=== PATIENT | female | born 1950 | race Caucasian/White ===

== ENCOUNTER 2022-07-12 09:17 | Day surgery (SDC) | payer OTHER, SELFPAY ==
--- NOTE | 2022-07-11 | GASB_PTH ---
PATIENT: CALLIE ROSE LOC: EN U#:[id number] AGE/SX: 72/F ROOM: RE07/12/[address]: Dr. Fran Munoz DO : 1950 BED: DIS: 07/12/2022 SPEC #: [id number] RECD: 07/12/22 13:02 STATUS: JJ AUBREY #: [id number] MEHUL: 07/11/22 00:[address]: Fran Munoz DEPT: SURGICAL PATHOLOGY RECD BY: Bishop Young ENTERED: 07/12/22 13:02 SP TYPE: Gastric Bx OTHR DR: Dr. Shamar Love MD Tissues: A - Gastric mucous membrane B - Gastric mucous membrane C - Esophageal mucous membrane Procedures: Special Stain Group II Surgery Specimen Level IV Alcian Blue/PAS (control) HEADER OPERATION: EGD ([facility] [place]), biopsy PRE-OP DIAGNOSIS: Dysphagia, esophageal reflux TISSUE SUBMITTED: A ? Antrum biopsy for histo and H. pylori, B ? Gastric body biopsy, C ? Distal esophagus biopsy MICROSCOPIC DIAGNOSIS A. Antrum, biopsy: Mild gastritis. See microscopic description and comment. B. Gastric body, biopsy: Mild gastritis. See microscopic description. C. Distal esophagus, biopsy: Fragments of gastroesophageal mucosa with chronic inflammation. Intestinal metaplasia (goblet cell metaplasia) not identified. See comment. SJ:rg 07/13/2022 COMMENT A. The results of immunohistochemistry for Helicobacter pylori will be reported separately ([id number]). C. Alcian blue/PAS stain with matched control is used in the evaluation of the specimen. MICROSCOPIC DESCRIPTION Slides are reviewed. A & B. The specimen shows fragments of gastric mucosa with chronic inflammatory cell infiltrates in the lamina propria consisting of lymphocytes and plasma cells, consistent with mild chronic gastritis. GROSS DESCRIPTION A - Received in fixative is one container labeled with the patient's name and designated antrum biopsy. The specimen consists of two irregular fragments of light pompa soft tissue that in aggregate measure 0.8 x 0.4 x 0.1 cm. The specimen is totally submitted in one cassette. B - Received in fixative is one container labeled with the patient's name and designated gastric body biopsy. The specimen consists of two irregular fragments of light pompa soft tissue that in aggregate measure 0.8 x 0.5 x 0.1 cm. The specimen is totally submitted in one cassette. C - Received in fixative is one container labeled with the patient's name and designated distal esophagus biopsy. The specimen consists of multiple irregular fragments of light pompa soft tissue that in aggregate measure 0.8 x 0.4 x 0.1 cm. The specimen is totally submitted in one cassette. / SJ:rg 07/12/2022 TC:3 CPT: 10931 x3, 25928
[2022-07-12] VITALS (7 sets, daily range): BP systolic 91–138; BP diastolic 48–77; PULSE 55–73; RESP 14–18; TEMP 36.2–36.5; O2SAT 96–100; BMI 27.8
[2022-07-12] MEDS: Lactated Ringers 1,000 ML 15 ML IV (09:49)
--- NOTE | 2022-07-12 10:30 | IMM_PTH ---
PATIENT: CALLIE ROSE LOC: EN U#:[id number] AGE/SX: 72/F ROOM: RE07/12/[address]: Dr. Fran Munoz DO : 1950 BED: DIS: 07/12/2022 SPEC #: [id number] RECD: 07/12/22 13:06 STATUS: JJ AUBREY #: [id number] MEHUL: 07/12/22 10:[address]: Fran Munoz DEPT: IMMUNOHISTOCHEMISTRY RECD BY: Melissa Moody ENTERED: 07/12/22 13:07 SP TYPE: IMMUNO OTHR DR: Dr. Shamar Love MD Tissues: A - Stomach, NOS Procedures: H Pylori (initial) PHYSICIAN & INSTITUTION [place] [id number] SPECIMEN INFORMATION: Tissue Source: A ? Antrum biopsy Clinical Info: Dysphagia, esophageal reflux Specimen Number: [id number] CPT code: 99145 METHODOLOGY: Deparaffinized sections of prefer/formalin-fixed tissue or PAP/DQ stained slides are incubated with monoclonal/polyclonal antibodies/oligonucleotide probes. Localization is made via biotin free immunoperoxidase method. Appropriate controls are performed and reacted as expected. Results on target cell population are indicated in the following table: RESULTS: ANTIBODY / CLONE RESULT Block A H Pylori (polyclonal) negative These tests were developed and their performance characteristics determined by [facility]. They may not have been cleared or approved by the U.S. Food and Drug Administration. The FDA has determined that such clearance or approval is not necessary. The above immunohistochemical/dualISH markers are ordered and reviewed by the Pathologist. INTERPRETATION: A. Antrum, biopsy: Negative for Helicobacter pylori organisms. SJ:anayeli 07/13/2022
--- NOTE | 2022-07-12 11:34 | OP.EGD_ITS ---
Patient Name: Danita Reddy Procedure Date: 07/12/2022 11:03 AM Date of : 1950 Age: 72 Procedure: Upper GI endoscopy Indications: Dysphagia Providers: Fran Munoz DO Medicines: Monitored Anesthesia Care Patient Profile: This is a 72 year old female. Refer to note in patient chart for documentation of history and physical. Patient has symptoms of chronic dysphagia and dysphagia with solids. The symptoms first began within the past few months. Complications: No immediate complications. Procedure: Pre-Anesthesia Assessment: - Prior to the procedure, a History and Physical was performed, and patient medications and allergies were reviewed. The patient is competent. The risks and benefits of the procedure and the sedation options and risks were discussed with the patient. All questions were answered and informed consent was obtained. Patient identification and proposed procedure were verified by the physician in the pre-procedure area. Mental Status Examination: alert and oriented. Airway Examination: normal oropharyngeal airway and neck mobility. Respiratory Examination: clear to auscultation. CV Examination: normal. Prophylactic Antibiotics: The patient does not require prophylactic antibiotics. Prior Anticoagulants: The patient has taken no previous anticoagulant or antiplatelet agents. ASA Grade Assessment: II - A patient with mild systemic disease. After reviewing the risks and benefits, the patient was deemed in satisfactory condition to undergo the procedure. The anesthesia plan was to use monitored anesthesia care (MAC). Immediately prior to administration of medications, the patient was re-assessed for adequacy to receive sedatives. The heart rate, respiratory rate, oxygen saturations, blood pressure, adequacy of pulmonary ventilation, and response to care were monitored throughout the procedure. The physical status of the patient was re-assessed after the procedure. After obtaining informed consent, the endoscope was passed under direct vision. Throughout the procedure, the patient's blood pressure, pulse, and oxygen saturations were monitored continuously. The gastroscope was introduced through the mouth, and advanced to the second part of duodenum. The upper GI endoscopy was accomplished without difficulty. The patient tolerated the procedure well. Scope In: 11:14:23 AM Scope Out: 11:25:22 AM Total Procedure Duration Time 0 hours 10 minutes 59 seconds Findings: One benign-appearing, intrinsic stenosis was found 21 to 23 cm from the incisors. This stenosis was moderately severe (circumferential scarring or stenosis; an endoscope may pass) and. The stenosis was traversed. A guidewire was placed and the scope was withdrawn. Dilation was performed with a Savary dilator with no resistance at 54 Fr. The dilation site was examined following endoscope reinsertion and showed complete resolution of luminal narrowing. Estimated blood loss was minimal. LA Grade A (one or more mucosal breaks less than 5 mm, not extending between tops of 2 mucosal folds) esophagitis with no bleeding was found 36 to 37 cm from the incisors. Biopsies were taken with a cold forceps for histology. Verification of patient identification for the specimen was done. Estimated blood loss was minimal. A small hiatal hernia was present. Patchy mildly erythematous mucosa without bleeding was found in the gastric body and in the gastric antrum. Biopsies were taken with a cold forceps for histology. The second portion of the duodenum was normal. Impression: - Benign-appearing esophageal stenosis. Dilated. - LA Grade A reflux esophagitis. Biopsied. - Small hiatal hernia. - Erythematous mucosa in the gastric body and antrum. Biopsied. - Normal second portion of the duodenum. Recommendation: - Await pathology results. - No aspirin, ibuprofen, naproxen, or other non-steroidal anti-inflammatory drugs for 3 days after biopsy. - Await pathology results. Procedure Code(s): --- Professional --- 46530, Esophagogastroduodenoscopy, flexible, transoral; with insertion of guide wire followed by passage of dilator(s) through esophagus over guide wire 39617, 59,51, Esophagogastroduodenoscopy, flexible, transoral; with biopsy, single or multiple CPT copyright 2017 [employer]. All rights reserved. The codes documented in this report are preliminary and upon welder experimental review may be revised to meet current compliance requirements. Fran Munoz DO 07/12/2022 11:33:54 AM This report has been signed electronically. Number of Addenda: 0 Note Initiated On: 07/12/2022 11:03 AM
[2022-07-12] MEDS: Mag Hydrox/Al Hydrox/Simeth 30 ML UDC PO (11:47)
--- NOTE | 2022-07-13 10:58 | HP.PCM_ITS ---
History and Physical Date of Admission: 07/12/22 DANITA ROSE, is a 72 F who presents to the office today for Initial consult. Danita established with this clinic 06.03.22. She has been having chest pain that is related to reflux occurring each for the last several years with worsening of frequency recently. Sometimes she will have a sensation that foods do not pass appropriately and she experiences esophageal pain, this occurs once a month or less. No food or timing triggers; does avoid spicy foods. VIPUL; when last saw PCP she was told to switch to Pepcid PRN; someone told her to try vinegar, ineffective; baking soda, ineffective. Chewing gum is helpful. She has not had an EGD. Colon cancer screening includes smear testing and Cologuard; no colonoscopy to date. Denies FH of colon, esophageal and stomach cancers. ROS Const Constitutional: No anorexia, fatigue, fever(s), weight change or sleep problems Eyes Eyes: No change in vision ENT ENT: No abnormal hearing, difficulty swallowing, mouth lesions, tongue swelling or throat swelling Resp Respiratory: No cough or shortness of breath Cardio Cardiology: No chest pain at rest, chest pain with exertion, shortness of breath or dyspnea on exertion Gastro GI: No difficulty swallowing Genitourinary-Female: No difficulty urinating or burning urination Musc Musculoskeletal: No joint pain, joint swelling, muscle weakness or decreased muscle mass Skin Skin: No hair loss in leg, yellowing of the eye, itchy eyes, rash, skin ulcer or skin swelling Neuro Neurology: No abnormal hearing, abnormal movements, confusion, unsteady gait/balance or memory loss Psych Psychiatric: No anxiety, No confusion and No memory loss Endo Endocrine: No fatigue or weight change Aller/Imm Allergy/Immunologic: No itchy eyes, throat swelling or tongue swelling Jimbo/Lymp Hematologic/Lymphatic: No easy bleeding, easy bruising or enlarged lymph nodes Exam Const General: cooperative and comfortable Nutritional Appearance: average body habitus and well nourished [facility] Head: normal to inspection Ears: hearing grossly normal bilaterally Nose: external nose normal Face and sinus: normal facial exam Mouth: oral mucosae normal Throat: posterior oropharynx normal Eyes General: appearance normal, both eyes and all related structures Neck Neck: normal visual inspection Chest Chest palpation & inspection: normal inspection of the chest and normal palpation of entire chest wall Resp Effort & Inspection: normal respiratory effort Auscultation: Bilateral: Clear to Auscultation Cardio Palpation: normal PMI Rate: regular rate Rhythm: regular rhythm GI Inspection: normal to inspection Auscultation: normal bowel sounds Percussion: normal to percussion Palpation: no hepatosplenomegaly Skin General: no rashes or lesions noted Neuro General: patient alert Extrem General: normal to inspection Psych Affect: normal affect Assessment and Plan Assessment and Plan (1) Dysphagia: ?Status:?Chronic ?Plan: The differential diagnosis for esophageal dysphagia does include eosinophilic esophagitis, esophageal ring, erosive esophagitis, esophageal web, hiatal hernia.? She should undergo an upper endoscopy about full esophageal dilation.? She was explained alternatives, risk, benefits including understanding bleeding, infection, sepsis, perforation, need for emergent .? She have an ASA of 1. (2) Esophageal reflux: ?Status:?Chronic ?Plan: We will put her on pantoprazole 40 mg once a day in perform an upper endoscopy plus or minus Mckeon procedure.? She will also be screened for Fairchild's esophagus. ? ? ? Medications: New pantoprazole (Protonix) 40 mg? PO DAILY 30 tabs 11RF ? ? I have re-examined the patient. There are no clinical changes since date of exam.
== END 2022-07-12 12:12 | disposition home or self-care (01) ==
LOC: EN 09:22 → AC 09:22
PROVIDERS: PCP Internal Medicine; Referring Provider Internal Medicine Gastroenterology; Visit Provider Internal Medicine Gastroenterology
PROC: 0DJ08ZZ Inspection of Upper Intestinal Tract, Via Natural or Artificial Opening Endoscopic (ICD-10-PCS; CPT 43235; principal; 2022-07-12 10:25)
DX: R13.10 Dysphagia, unspecified (principal); K44.9 Diaphragmatic hernia without obstruction or gangrene; K22.2 Esophageal obstruction; K21.00 Gastro-esophageal reflux disease with esophagitis, without bleeding
CPT/HCPCS: 43239; 43248; 88305; 88313; 88342; J7120; C1769